=== PATIENT | male | born 1970 | race Hispanic/Latino ===

== ENCOUNTER 2019-08-25 14:05 | Emergency (ER) | payer SELFPAY ==
[2019-08-25 14:12] VITALS: BP 117/69
[2019-08-25] MEDS ORDERED: CLINDAMYCIN 600 MG/50 mL 600 MG/50 ML BAG IV ONE (14:47)
[2019-08-25] MEDS ORDERED: MORPHINE 4 MG/1 ML INJ IV ONE (14:47)
[2019-08-25] MEDS ORDERED: SODIUM CHLORIDE 0.9% 1000 ML 1,000 ML IV ONE (14:47)
[2019-08-25] MEDS ORDERED: ONDANSETRON 4 MG/2 ML INJ IV ONE (14:47)
--- NOTE | 2019-08-25 15:04 | Emergency Department Report ---
- General Chief Complaint: Wound/Laceration Stated Complaint: RIGHT ARM WOUND Time Seen by Provider: 08/25/19 14:38 Source: patient Mode of arrival: Ambulatory Limitations: No Limitations - History of Present Illness Initial Comments: Patient is a 49-year-old male who presents emergency room with complaints of a wound to the right arm that began 3 weeks ago. He states 3 weeks ago he was doing some yard work and believes he got scratches on the arm. He states then last week he got into a hot tub when he still had the scratches present. He states that over the last few days he has had redness, swelling, pain to the right arm. He states that he has noticed some drainage. He denies any fever, chills, nausea, vomiting, diarrhea. He has a past medical history of HIV, he s tates that he is on his antivirals, he reports that he is undetectable. He has an allergy to penicillin. - Related Data Previous Rx's Medication Instructions Recorded Last Taken Type Clindamycin [Clindamycin CAP] 450 mg PO TID 10 Days #90 capsule 08/25/19 Unknown Rx traMADoL [Ultram 50 MG tab] 50 mg PO Q6HR PRN #10 tablet 08/25/19 Unknown Rx Allergies Allergy/AdvReac Type Severity Reaction Status Date / Time Penicillins AdvReac Hives Verified 08/25/19 14:08 ED Review of Systems ROS: Stated complaint: RIGHT ARM WOUND Other details as noted in HPI Comment: All other systems reviewed and negative ED Past Medical Hx - Past Medical History Hx HIV: Yes - Surgical History Past Surgical History?: No - Social History Smoking Status: Never Smoker Substance Use Type: None - Medications Home Medications: Home Medications Medication Instructions Recorded Confirmed Last Taken Type Clindamycin [Clindamycin CAP] 450 mg PO TID 10 Days #90 capsule 08/25/19 Unknown Rx traMADoL [Ultram 50 MG tab] 50 mg PO Q6HR PRN #10 tablet 08/25/19 Unknown Rx ED Physical Exam - General Limitations: No Limitations General appearance: alert, in no apparent distress - Head Head exam: Present: atraumatic, normocephalic - Eye Eye exam: Present: normal appearance - ENT ENT exam: Present: mucous membranes moist - Neurological Exam Neurological exam: Present: alert, oriented X3 - Psychiatric Psychiatric exam: Present: normal affect, normal mood - Skin Skin exam: Present: warm, other (two small very shallow ulceration from previous blisters present to the right anterior forearm, there is a very small amount of purulent drainage, there is significant edema and erythema present to the forearm and partially on the upper arm, pt has FROM, neurovasculalry intact, no skin denuding, no necrosis ) ED Course Vital Signs 08/25/19 08/25/19 14:09 15:16 Temperature 98.6 F Pulse Rate 93 H Respiratory 20 Rate Blood Pressure 117/69 O2 Sat by Pulse 100 Oximetry ED Medical Decision Making - Lab Data Result diagrams: 08/25/19 15:46 08/25/19 15:46 Lab Results 08/25/19 08/25/19 08/25/19 Range/Units 15:46 15:46 15:46 WBC 8.1 (4.5-11.0) K/mm3 RBC 4.19 (3.65-5.03) M/mm3 Hgb 13.4 (11.8-15.2) gm/dl Hct 39.0 (35.5-45.6) % MCV 93 (84-94) fl MCH 32 (28-32) pg MCHC 34 (32-34) % RDW 13.0 L (13.2-15.2) % Plt Count 153 (140-440) K/mm3 Lymph % (Auto) 19.7 (13.4-35.0) % [place] % (Auto) 10.4 H (0.0-7.3) % Eos % (Auto) 1.6 (0.0-4.3) % Baso % (Auto) 0.3 (0.0-1.8) % Lymph # 1.6 (1.2-5.4) K/mm3 [place] # 0.8 (0.0-0.8) K/mm3 Eos # 0.1 (0.0-0.4) K/mm3 Baso # 0.0 (0.0-0.1) K/mm3 Seg Neutrophils % 68.0 (40.0-70.0) % Seg Neutrophils # 5.5 (1.8-7.7) K/mm3 Sodium 134 L (137-145) mmol/L Potassium 3.9 (3.6-5.0) mmol/L Chloride 102.8 (98-107) mmol/L Carbon Dioxide 23 (22-30) mmol/L Anion Gap 12 mmol/L BUN 18 (9-20) mg/dL Creatinine 1.4 (0.8-1.5) mg/dL Estimated GFR 53 ml/min BUN/Creatinine Ratio 13 % Glucose 85 (75-100) mg/dL Lactic Acid 1.20 (0.7-2.0) mmol/L Calcium 8.6 (8.4-10.2) mg/dL Total Bilirubin 0.30 (0.1-1.2) mg/dL AST 15 (5-40) units/L ALT 13 (7-56) units/L Alkaline Phosphatase 81 (35-129) units/L Total Protein 6.0 L (6.3-8.2) g/dL Albumin 3.2 L (3.9-5) g/dL Albumin/Globulin Ratio 1.1 % - Medical Decision Making Patient is a 49-year-old male who presents emergency room with complaints of a wound to the right arm that began 3 weeks ago. He states 3 weeks ago he was doing some yard work and believes he got scratches on the arm. He states then l ast week he got into a hot tub when he still had the scratches present. He states that over the last few days he has had redness, swelling, pain to the right arm. He states that he has noticed some drainage. He denies any fever, chills, nausea, vomiting, diarrhea. He has a past medical history of HIV, he states that he is on his antivirals, he reports that he is undetectable. He has an allergy to penicillin. Vitals are normal. on exam: two small very shallow ulceration from previous blisters present to the right anterior forearm, there is a very small amount of purulent drainage, there is significant edema and erythema present to the forearm and partially on the upper arm, pt has FROM, neurovasculalry intact, no skin denuding, no necrosis. Examination consistent with cellulitis, no drainable abscess at this time. Labs are normal, no leukocytosis, lactic acid is normal. Patient given 1 L IV fluids, IV clindamycin, Zofran, morphine. Discussed case with Dr. Jose Panda, ER att ending who evaluated patient at bedside and advised to julito the skin and discharge patient home with Keflex and pain medication. Use skin marker to make samson of the skin around the erythema, advised patient to return immediately if the redness crossed the line that he would need to be admitted for IV antibiotics to prevent loss of limb or severe infection, patient verbalized understanding. Patient given prescription for clindamycin and tramadol. Advised patient please take medication as prescribed. Do not drive or operate heavy machinery while taking pain medication. Please have area reexamined in the next 2 to 3 days. I have marked with a skin marker on your skin if the redness begins to cross that line you need to return to the emergency room immediately for admission and IV antibiotics to prevent loss of limb or serious infection. Return to the emergency room immediately for any new or worsening symptoms. Critical care attestation.: If time is entered above; I have spent that time in minutes in the direct care of this critically ill patient, excluding procedure time. ED Disposition Clinical Impression: Cellulitis Qualifiers: Site of cellulitis: extremity Site of cellulitis of extremity: upper extremity Laterality: right Qualified Code(s): L03.113 - Cellulitis of right upper limb Disposition: DC- TO HOME OR SELFCARE Is pt being admited?: No Does the pt Need Aspirin: No Condition: Stable Instructions: Cellulitis (ED) Additional Instructions: please take medication as prescribed. Do not drive or operate heavy machinery while taking pain medication. Please have area reexamined in the next 2 to 3 days. I have marked with a skin marker on your skin if the redness begins to cross that line you need to return to the emergency room immediately for admission and IV antibiotics to prevent loss of limb or serious infection. Return to the emergency room immediately for any new or worsening symptoms. Prescriptions: Clindamycin [Clindamycin CAP] 450 mg PO TID 10 Days #90 capsule traMADoL [Ultram 50 MG tab] 50 mg PO Q6HR PRN #10 tablet PRN Reason: Pain , Severe (7-10) Referrals: JOE DORADO MD [Staff Physician] - 2-3 Days [facility] [Outside] - 2-3 Days [facility] [Outside] - 2-3 Days [facility] [Provider Group] - 2-3 Days Time of Disposition: 17:04 Print Language: CHINESE
[2019-08-25 16:36] LABS: Basophils % (Auto) 0.3 % (0.0-1.8); Eosinophils # (Auto) 0.1 K/mm3 (0.0-0.4); Eosinophils % (Auto) 1.6 % (0.0-4.3); Hemoglobin 13.4 gm/dl (11.8-15.2); Lymphocytes # (Auto) 1.6 K/mm3 (1.2-5.4); Lymphocytes % (Auto) 19.7 % (13.4-35.0); Mean Corpuscular HGB Conc 34 % (32-34); Mean Corpuscular Volume 93 fl (84-94); Monocytes # (Auto) 0.8 K/mm3 (0.0-0.8); Monocytes % (Auto) 10.4 % (0.0-7.3); Platelet Count 153 K/mm3 (140-440); Red Blood Count 4.19 M/mm3 (3.65-5.03)
[2019-08-25 16:46] LABS: Albumin 3.2 g/dL (3.9-5); Calcium 8.6 mg/dL (8.4-10.2)
== END 2019-08-25 17:18 | disposition home or self-care (01) ==
LOC: ED 14:05
DX: L03.113 Cellulitis of right upper limb (principal); Z79.899 Other long term (current) drug therapy; Z88.0 Allergy status to penicillin; Z21 Asymptomatic human immunodeficiency virus [HIV] infection status
CPT/HCPCS: 36415; 80053; 82140; 85025; 96365; 96375; 99283; J2270; J2405; J7030

== ENCOUNTER 2019-11-29 16:58 | Emergency (ER) | payer SELFPAY ==
[2019-11-29 17:29] VITALS: BP 140/80
--- NOTE | 2019-11-29 19:56 | Event Note ---
ED Screening Note Date of service: 11/29/19 Time: 19:52 ED Screening Note: 49-year-old male who presents the ED with right ankle pain and swelling and redness x1 week. Patient states he [place] the mountains and fell last Wednesday 10 days ago This initial assessment/diagnostic orders/clinical plan/treatment(s) is/are subject to change based on patients health status, clinical progression and re- assessment by fellow clinical providers in the ED. Further treatment and workup at subsequent clinical providers discretion. Patient/guardian urged not to elope from the ED as their condition may be serious if not clinically assessed and managed. Initial orders include: xr ankle cellulitis, vs ankle fx
--- NOTE | 2019-11-29 20:47 | XRay Report ---
RIGHT ANKLE 3 VIEWS INDICATION: pain,red,swollen. Fall one week ago COMPARISON: No relevant prior imaging study available. FINDINGS: There is a minimally displaced oblique fracture through the distal fibula at the level of the tibiota lar joint. Adjacent soft tissue swelling is noted. No additional fractures are seen. Mild calcaneal e nthesopathy is noted. IMPRESSION: 1. Minimally displaced oblique distal fibular fracture. Signer Name: Michael Silvestre MD Signed: 11/29/2019 8:42 PM Workstation Name: [id number]
[2019-11-29] MEDS ORDERED: HYDROcodone/ACETAMINOPHEN 7.5-325MG TAB PO ONE (21:18)
[2019-11-29] MEDS ORDERED: ONDANSETRON 4 MG ODT TAB PO ONE (21:18)
[2019-11-29] MEDS ORDERED: IBUPROFEN 600 MG TAB PO ONE (21:18)
--- NOTE | 2019-11-29 22:25 | Emergency Department Report ---
ED Lower Extremity HPI - General Chief Complaint: Extremity Injury, Lower Stated Complaint: LEG PAIN Source: patient, EMS Mode of arrival: Ambulatory Limitations: No Limitations - History of Present Illness Initial Comments: Patient is a 49-year-old white male with a history of HIV who presents to the ED with complaint of acute onset persistent severe right ankle pain and swelling after he slipped and fell when [place] the [place] trails over 10 days ago. Patient states that the pain and swelling have worsened in the last 1 week. Patient states that the pain is worse with ambulation or any weightbearing on the right ankle and foot. Patient denies head or neck injuries, syncope, seizures, nausea, vomiting, chest pain, shortness of breath, numbness and tingling or weakness of right leg. MD Complaint: leg injury (Right), ankle injury (Right), fall Injury: Leg: Right (Right lower leg pain), Ankle: Right (Right ankle pain and swelling) Type of Injury: inversion Place: street/outdoors Severity: severe Severity scale (0 -10): 8 Improves With: nothing Worsens With: weight bearing, movement, palpation Context: fall, walking, other Associated Symptoms: snap/pop sensation, swelling, able to partially bear weight. denies: numbness, tingling, unable to bear weight, ambulatory - Related Data Previous Rx's Medication Instructions Recorded Last Taken Type Clindamycin [Clindamycin CAP] 450 mg PO TID 10 Days #90 capsule 08/25/19 Unknown Rx traMADoL [Ultram 50 MG tab] 50 mg PO Q6HR PRN #10 tablet 08/25/19 Unknown Rx HYDROcodone/APAP 5-325 [[place] 1 each PO Q6HR PRN #12 tablet 11/29/19 Unknown Rx 5/325] Ibuprofen [Motrin] 800 mg PO Q8HR PRN #30 tablet 11/29/19 Unknown Rx Allergies Allergy/AdvReac Type Severity Reaction Status Date / Time Penicillins AdvReac Hives Verified 11/29/19 17:21 ED Review of Systems ROS: Stated complaint: LEG PAIN Other details as noted in HPI Constitutional: denies: chills, fever Eyes: denies: eye pain, eye discharge, vision change ENT: denies: ear pain, throat pain Respiratory: denies: cough, shortness of breath, wheezing Cardiovascular: denies: chest pain, palpitations Endocrine: no symptoms reported Gastrointestinal: denies: abdominal pain, nausea, diarrhea Genitourinary: denies: urgency, dysuria Musculoskeletal: joint swelling (right ankle swelling), arthralgia (right ankle pain), myalgia. denies: back pain Skin: denies: rash, lesions Neurological: denies: headache, weakness, paresthesias Psychiatric: denies: anxiety, depression Hematological/Lymphatic: denies: easy bleeding, easy bruising ED Past Medical Hx - Past Medical History Previous Medical History?: Yes Hx HIV: Yes - Surgical History Past Surgical History?: No - Social History Smoking Status: Never Smoker Substance Use Type: None - Medications Home Medications: Home Medications Medication Instructions Recorded Confirmed Last Taken Type Clindamycin [Clindamycin CAP] 450 mg PO TID 10 Days #90 capsule 08/25/19 Unknown Rx traMADoL [Ultram 50 MG tab] 50 mg PO Q6HR PRN #10 tablet 08/25/19 Unknown Rx HYDROcodone/APAP 5-325 [[place] 1 each PO Q6HR PRN #12 tablet 11/29/19 Unknown Rx 5/325] Ibuprofen [Motrin] 800 mg PO Q8HR PRN #30 tablet 11/29/19 Unknown Rx ED Physical Exam - General Limitations: No Limitations General appearance: alert, in no apparent distress - Head Head exam: Present: atraumatic, normocephalic, normal inspection - Eye Eye exam: Present: normal appearance, PERRL, EOMI Pupils: Present: normal accommodation - ENT ENT exam: Present: normal exam, normal orophraynx, mucous membranes moist, TM's normal bilaterally, normal external ear exam - Neck Neck exam: Present: normal inspection, full ROM - Respiratory Respiratory exam: Present: normal lung sounds bilaterally. Absent: respiratory distress, wheezes, rales, chest wall tenderness, accessory muscle use, prolonged expiratory - Cardiovascular Cardiovascular Exam: Present: regular rate, normal rhythm, normal heart sounds. Absent: systolic murmur, diastolic murmur, rubs, gallop - GI/Abdominal GI/Abdominal exam: Present: soft, normal bowel sounds. Absent: tenderness, guarding, hyperactive bowel sounds - Extremities Exam Extremities exam: Present: normal inspection, tenderness (Palpable severe right ankle tenderness with mild swelling and limited range of motion due to pain), normal capillary refill, joint swelling (Right ankle swelling and tenderness). Absent: full ROM (Limited range of motion right ankle due to pain), calf tenderness - Back Exam Back exam: Present: normal inspection, full ROM. Absent: tenderness, CVA tenderness (R), muscle spasm - Neurological Exam Neurological exam: Present: alert, oriented X3, CN II-XII intact, normal gait, reflexes normal - Psychiatric Psychiatric exam: Present: normal affect, normal mood - Skin Skin exam: Present: warm, dry, intact, normal color. Absent: rash ED Course Vital Signs 11/29/19 17:28 Temperature 98.4 F Pulse Rate 80 Respiratory 18 Rate Blood Pressure 140/80 [Left] O2 Sat by Pulse 98 Oximetry ED Lower Extremity MDM - Radiology Data Radiology results: report reviewed, image reviewed Findings [facility] [address] [place] [address] XRay Report Signed Patient: YAKOV VELÁSQUEZ MR#: [id number] : 1970 Acct:[id number] Age/Sex: 49 / M ADM Date: 11/29/19 Loc: ED Attending Dr: Ordering Physician: TRISHA FELIZ Date of Service: 11/29/19 Procedure(s): XR ankle 3+V RT Accession Number(s): [id number] cc: TRISHA FELIZ Fluoro Time In Minutes: RIGHT ANKLE 3 VIEWS INDICATION: pain,red,swollen. Fall one week ago COMPARISON: No relevant prior imaging study available. FINDINGS: There is a minimally displaced oblique fracture through the distal fibula at the level of the tibiotalar joint. Adjacent soft tissue swelling is noted. No additional fractures are seen. Mild calcaneal enthesopathy is noted. IMPRESSION: 1. Minimally displaced oblique distal fibular fracture. Signer Name: Michael Silvestre MD Signed: 11/29/2019 8:42 PM Workstation Name: [id number] Transcribed By: Dictated By: Michael Silvestre MD Electronically Authenticated By: Michael Silvestre MD Signed Date/Time: 11/29/192041 DD/ 40 TD/TT: - Medical Decision Making This is a 49-year-old white male with a history of HIV who presents to the ED with complaint of acute onset persistent severe right ankle pain and swelling after he slipped and fell when hiking the [place] trails over 10 days ago. Patient states that the pain and swelling have worsened in the last 1 week. Patient states that the pain is worse with ambulation or any weight-bearing on the right ankle and foot. In the ED, patient is alert and oriented x3 and is not in distress. Patient was treated for pain and right ankle x-ray shows a minimally displaced oblique fracture through the distal fibula at the level of the tibiotalar joint. Adjacent soft tissue swelling is noted. No additional fractures are seen. Mild calcaneal enthesopathy is noted. Right ankle was splinted with long leg posterior splint and the patient fitted with crutches. Patient was discharged home on pain medication and given a referral to the orthopedic surgeon Dr. Wesley for further evaluation. Patient was advised to contact connections office first thing in the morning to schedule a follow-up appointment. Patient was advised to return to the ED immediately if symptoms get worse. - Differential Diagnosis Ankle fracture; Muscle strain; contusion; muscle spasm Critical care attestation.: If time is entered above; I have spent that time in minutes in the direct care of this critically ill patient, excluding procedure time. ED Disposition Clinical Impression: Displaced fracture of distal end of right fibula Severe sprain of right ankle Qualifiers: Encounter type: initial encounter Qualified Code(s): S93.401A - Sprain of unspecified ligament of right ankle, initial encounter Disposition: TO HOME OR SELFCARE Is pt being admited?: No Does the pt Need Aspirin: No Condition: Stable Instructions: Ankle Fracture (ED), Ankle Sprain (ED) Additional Instructions: The x-ray shows that you have a slightly displaced right ankle fracture. Therefore take pain medication as needed with food, drink plenty of fluids and follow-up with your orthopedic surgeon Dr. Wesley as advised. Contact Dr. Wesley's office to schedule a follow-up appointment the next day. Return to the ED immediately if symptoms get worse. Prescriptions: Ibuprofen [Motrin] 800 mg PO Q8HR PRN #30 tablet PRN Reason: Pain , Severe (7-10) HYDROcodone/APAP 5-325 [[place] 5/325] 1 each PO Q6HR PRN #12 tablet PRN Reason: Pain Referrals: ARTUR WESLEY MD [Staff Physician] - 3-5 Days Time of Disposition: 22:24 Print Language: CYMRAES
== END 2019-11-29 22:40 | disposition home or self-care (01) ==
LOC: ED 16:58
DX: S82.831A Other fracture of upper and lower end of right fibula, initial encounter for closed fracture (principal); S93.401A Sprain of unspecified ligament of right ankle, initial encounter; W01.0XXA Fall on same level from slipping, tripping and stumbling without subsequent striking against object, initial encounter; Y93.89 Activity, other specified; Y92.89 Other specified places as the place of occurrence of the external cause; Y99.8 Other external cause status
CPT/HCPCS: 99284; Q0162